=== PATIENT | male | born 1975 | race Caucasian/White ===

== ENCOUNTER 2016-10-23 08:21 | Emergency (ER) | payer SELFPAY ==
[~2016-10-23] VITALS: Ht 182.9 cm; Wt 100.3 kg
[~2016-10-23 08:21] MED LIST: FENT25DI T-DERMAL; LORTA5 PO; OXYC5 PO; PERI8.6T PO; XANA1TAB6 PO
[2016-10-23 08:22] VITALS: BP 128/90; PULSE 70; RESP 15; TEMP 98; O2SAT 99
[2016-10-23] MEDS ORDERED: ENOX100P SQ (08:41)
[2016-10-23] MEDS ORDERED: ONDANSETRON ODT 4 MG TAB PO ONE (08:45)
[2016-10-23] MEDS ORDERED: MORPHINE SULFATE 8 MG/ML INJ IM ONE (08:45)
--- NOTE | 2016-10-23 08:45 | PD ---
HPI Chief Complaint: Injury Time Seen by Provider: 08:33 Travel History International Travel<30 days: No Contact w/Intl Traveler<30days: No Traveled to known affect area: No History of Present Illness HPI 41yo M with PMH of trimalleolar fracture right ankle and s/p multiple surgeries since last year presents to the ED with c/o right ankle pain s/p stepping on a tree root last night. Pt is on chronic pain medication but states he does not have them anymore and use to take dilaudid. Pt has pain management appointment being arranged now. Denies any head trauma, chest pain, sob, vomiting, abdominal pain, focal weakness or numbness. Pt able to ambulate. Orthopedic surgeon was Dr. Echeverria. Pt is on lovenox now because they plan to do another surgery. PFSH Past Medical History Autoimmune Disease: No Anxiety: Yes Depression: No Cancer: No Cardiovascular Problems: No Chemotherapy: No Diabetes: No Diminished Hearing: No Endocrine: No Genitourinary: No Immune Disorder: No Kidney Stones: Yes Musculoskeletal: No Neurologic: No Psychiatric: Yes (anxiety/states PTSD) Reproductive: No Respiratory: No Immunizations Current: Yes Radiation Therapy: No Sickle Cell Disease: No Thyroid Disease: No ?: Not Past Surgical History Abdominal Surgery: No AICD: No Arteriovenous Shunt: No Cardiac Surgery: No Ear Surgery: No Endocrine Surgery: No Eye Surgery: No Genitourinary Surgery: No Gynecologic Surgery: No Insulin Pump: No Joint Replacement: No Oral Surgery: No Pacemaker: No Thoracic Surgery: No Tonsillectomy: Yes Other Surgery: Yes Social History Alcohol Use: No Tobacco Use: Yes (1/2 -1 PPD) Substance Use: No Allergies-Medications (Allergen,Severity, Reaction): Coded Allergies: No Known Allergies (Unverified , 10/23/16) Reported Meds & Prescriptions Reported Meds & Active Scripts Active Reported Lovenox Inj (Enoxaparin Sodium) 100 Mg/Ml Syr 100 Mg SQ DAILY Review of Systems Except as stated in HPI: all other systems reviewed are Neg Physical Exam Narrative GENERAL: 41yo M in mild distress. SKIN: Focused skin assessment warm/dry. HEAD: Atraumatic. Normocephalic. CARDIOVASCULAR: Regular rate and rhythm. No murmur appreciated. RESPIRATORY: No accessory muscle use. Clear to auscultation. Breath sounds equal bilaterally. GASTROINTESTINAL: Abdomen soft, non-tender, nondistended. MUSCULOSKELETAL: RLE: DP 2+. +Edema that has been chronic. +TTP medial and lateral malleous. Muscle strength and sensation intact. NEUROLOGICAL: Awake and alert. No obvious cranial nerve deficits. Motor grossly within normal limits. Normal speech. PSYCHIATRIC: Appropriate mood and affect; insight and judgment normal. Data Data Last Documented VS Vital Signs Date Time Temp Pulse Resp B/P Pulse Ox O2 Delivery O2 Flow Rate FiO2 10/23/16 08:22 98.0 70 15 128/90 99 Orders Ankle, Limited (Ap&Lat) (10/23/16 ) Tibia/Fibula (Ap/Lat) (10/23/16 ) Morphine Inj (Morphine Inj) (10/23/16 08:45) Ondansetron Odt (Zofran Odt) (10/23/16 08:45) MDM Medical Decision Making Medical Screen Exam Complete: Yes Emergency Medical Condition: Yes Differential Diagnosis Sprain vs. fracture vs. contusion Narrative Course 41yo M with right ankle pain. Xray right ankle showed no acute right ankle abnormality. Postsurgical changes. Xray of tib/fib showed no acute osseous abnormality. Hardware demonstrates no acute finding. Pt given morphine 6mg IM. I looked him up on [facility] and saw that he has been getting hydrocondone- acetaminophen 10-[address] Lambert in pain management as well as alprazolam. Pt has been given #90 on 10/11/16 and another #90 on 09/12/16. Return precautions given. Diagnosis Primary Impression: Right ankle pain Qualified Code: M25.571 - Chronic pain of right ankle Patient Instructions: General Instructions Departure Forms: Tests/Procedures Additional Instructions: Please follow up with your pain management physician as needed. Return to the ED if symptoms worsen. Med/Other Pt SpecificInfo: No Change to Meds Disposition: 01 DISCHARGE HOME Condition: Stable Hillary Walker DO October 23, 2016 08:45
--- NOTE | 2016-10-23 09:30 | RADHPO ---
EXAM DATE/TIME: 10/23/2016 08:44 [facility] COMPARISON: ANKLE RIGHT COMPLETE ([id number]), February 15, 2016, 7:13. ANKLE RIGHT LIMITED (AP&LAT), November 11 6, 21:02. INDICATIONS : Ankle pain. MEDICAL HISTORY : None. SURGICAL HISTORY : Right ankle surgery last year. ENCOUNTER: [facility] ACUITY: 1 year PAIN SCORE: 9/10 LOCATION: Right Ankle/tibia FINDINGS: AP and lateral views of the right ankle demonstrate no acute fracture or dislocation. There is a medi al distal tibial side plate with multiple interlocking screws and 2 lag screws. There is a single milvia g cortical screw traversing the distal fibula in a retrograde fashion. There are no findings to indic ate hardware failure or loosening. Lucency is present within the posterior calcaneus secondary to bebeto or hardware. There are osteophytes at the tibiotalar joint. Subcutaneous edema is present. CONCLUSION: 1. No acute right ankle abnormality is identified. 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 2. Postsurgical changes, as above. Hardware demonstrates no acute finding. Flaco Soto MD on October 23, 2016 at 9:26 Board Certified Radiologist. This report was verified electronically.
--- NOTE | 2016-10-23 09:31 | RADHPO ---
EXAM DATE/TIME: 10/23/2016 09:01 [facility] COMPARISON: No previous studies available for comparison. INDICATIONS : Right ankle/leg pain. MEDICAL HISTORY : None. SURGICAL HISTORY : Right ankle surgery last year. ENCOUNTER: [facility] ACUITY: 1 year PAIN SCORE: 9/10 LOCATION: Right ankle/tibia FINDINGS: 4 views of the right leg demonstrate no fracture or dislocation. There is distal tibia and fibular cespedes rdware related to prior ORIF. Hardware demonstrates no finding to indicate failure or loosening. Ther e is subcutaneous edema in the distal aspect the leg. Lucencies in the mid tibia and posterior calcan eus are likely related to prior hardware that has been removed. CONCLUSION: 1. No acute osseous abnormality is visualized. There is subcutaneous edema in the distal leg. 2. Prior distal tibia and fibula ORIF. Hardware demonstrates no acute finding. Flcao Soto MD on October 23, 2016 at 9:28 Board Certified Radiologist. This report was verified electronically.
== END 2016-10-23 10:28 | disposition home or self-care (01) ==
LOC: PHED 08:21
DX: M25.571 Pain in right ankle and joints of right foot (principal); G89.29 Other chronic pain; F41.9 Anxiety disorder, unspecified; F43.10 Post-traumatic stress disorder, unspecified; F17.200 Nicotine dependence, unspecified, uncomplicated
CPT/HCPCS: 73590; 73600; 96372; 99284; J2270

== ENCOUNTER 2016-11-16 14:37 | Emergency (ER) | payer SELFPAY ==
[~2016-11-16] VITALS: Ht 182.9 cm; Wt 95.0 kg
[~2016-11-16 14:37] MED LIST changes: +ENOX100P SQ; -FENT25DI T-DERMAL; -LORTA5 PO; -OXYC5 PO; -PERI8.6T PO; -XANA1TAB6 PO
[2016-11-16 14:41] VITALS: BP 139/88; PULSE 94; RESP 14; TEMP 98.5; O2SAT 97
[2016-11-16 15:58] VITALS: BP 117/56; PULSE 76; RESP 19; O2SAT 96
[2016-11-16] MEDS ORDERED: ALPR1TAB3 PO (15:58)
[2016-11-16] MEDS ORDERED: LEXA20TA PO (15:58)
[2016-11-16] MEDS ORDERED: GABA600T PO (15:58)
[2016-11-16] MEDS ORDERED: DILA8TAB4 PO (15:58)
[2016-11-16] MEDS ORDERED: HYDR-3583 PO (15:58)
--- NOTE | 2016-11-16 16:05 | PD ---
HPI Chief Complaint: Respiratory Symptoms Time Seen by Provider: 16:03 Travel History International Travel<30 days: No Contact w/Intl Traveler<30days: No Traveled to known affect area: No History of Present Illness HPI 41-year-old male presents to the emergency department for evaluation of upper respiratory symptoms that have been ongoing for 1 week. Patient reports productive cough, congestion. He states he has chest wall pain with coughing and movement only. Patient denies any shortness breath. No abdominal pain. No nausea, vomiting, diarrhea. Patient is concerned he either has bronchitis or pneumonia. He denies any recent surgery or travel within the past month. No hemoptysis. No leg edema. No history DVT or PE. Patient states he was a previous tobacco user, but is not currently using tobacco. He does report a history of pneumonia. Patient has chronic pain to the right ankle. He denies any other complaints at this time. PFSH Past Medical History Autoimmune Disease: No Anxiety: Yes Depression: No Cancer: No Cardiovascular Problems: No Chemotherapy: No Diabetes: No Diminished Hearing: No Endocrine: No Gastrointestinal Disorders: No Genitourinary: No Heparin Induced Thrombocytopen: No Hypertension: No Immune Disorder: No Implanted Vascular Access Dvce: No Kidney Stones: Yes Musculoskeletal: No Neurologic: No Psychiatric: Yes (anxiety/states PTSD) Reproductive: No Respiratory: No Immunizations Current: Yes Radiation Therapy: No Sickle Cell Disease: No Thyroid Disease: No Past Surgical History Abdominal Surgery: No AICD: No Arteriovenous Shunt: No Cardiac Surgery: No Ear Surgery: No Endocrine Surgery: No Eye Surgery: No Genitourinary Surgery: No Gynecologic Surgery: No Insulin Pump: No Joint Replacement: No Oral Surgery: No Pacemaker: No Thoracic Surgery: No Tonsillectomy: Yes Other Surgery: Yes Social History Alcohol Use: No Tobacco Use: Yes (12 -1 PPD) Substance Use: No Allergies-Medications (Allergen,Severity, Reaction): Coded Allergies: No Known Allergies (Unverified , 11/16/16) Reported Meds & Prescriptions Reported Meds & Active Scripts Active Reported Gabapentin 600 Mg Tab 600 Mg PO TID Dilaudid (Hydromorphone HCl) 8 Mg Tab 8 Mg PO Q6H PRN Hydrocodone-Acetaminophen 10-325 mg Tab 1 Tab PO Q6H PRN Lexapro (Escitalopram Oxalate) 20 Mg Tab 20 Mg PO DAILY Alprazolam 1 Mg Tab 1 Mg PO TID Review of Systems Except as stated in HPI: all other systems reviewed are Neg Physical Exam Narrative GENERAL: Well-nourished, well-developed male patient, ambulatory. Afebrile. SKIN: Focused skin assessment warm/dry. HEAD: Normocephalic. Atraumatic. EYES: No scleral icterus. No injection or drainage. NECK: Supple, trachea midline. No JVD or lymphadenopathy. CARDIOVASCULAR: Regular rate and rhythm without murmurs, gallops, or rubs. RESPIRATORY: Breath sounds equal bilaterally. No accessory muscle use. Lungs sounds are clear to auscultation. GASTROINTESTINAL: Abdomen soft, non-tender, nondistended. MUSCULOSKELETAL: No cyanosis, or edema. Chest wall pain is easily reproducible with palpation. BACK: Nontender without obvious deformity. No CVA tenderness. Data Data Last Documented VS Vital Signs Date Time Temp Pulse Resp B/P Pulse Ox O2 Delivery O2 Flow Rate FiO2 11/16/16 16:02 74 20 98 Room Air 11/16/16 15:58 117/56 11/16/16 14:41 98.5 Orders Chest, Single Ap (11/16/16 ) [facility] Medical Decision Making Medical Screen Exam Complete: Yes Emergency Medical Condition: Yes Medical Record Reviewed: Yes Interpretation(s) Last Impressions Chest X-Ray 11/16/16 0000 Signed Impressions: Service Date/Time: October 16:08 - CONCLUSION: No acute cardiopulmonary abnormality is identified. Flaco Soto MD Differential Diagnosis URI versus bronchitis versus pneumonia Narrative Course 41-year-old male presents to the emergency department for evaluation of cold symptoms for one week. Patient does appear well on exam. Chest wall pain is easily reproducible with palpation is relieved as long as he is not moving or coughing. Patient is PERC negative. Lungs sounds are clear to auscultation. Chest x-ray is ordered and pending. Chest x-ray shows no acute abnormality. Patient is stable for discharge. He is to follow-up with his primary care physician. He'll be discharged with a prescription for benzonatate capsules for cough. Diagnosis Primary Impression: Viral upper respiratory infection Referrals: Primary Care Physician call for appointment Patient Instructions: General Instructions, Upper Respiratory Infection (ED) Additional Instructions: Take benzonatate capsules as directed as needed for cough. Follow-up with your primary care physician. Return to the emergency department for any acute worsening of symptoms. Med/Other Pt SpecificInfo: Prescription(s) given Scripts Benzonatate 200 Mg [id number] Mg PO TID PRN (COUGH) #21 CAP Ref 0 Prov:Mayra Wong 11/16/16 Disposition: 01 DISCHARGE HOME Condition: Stable Mayra Wong Nov 16, 2016 16:05
--- NOTE | 2016-11-16 16:20 | RADRPT ---
EXAM DATE/TIME: 11/16/2016 16:08 [facility] COMPARISON: CHEST SINGLE AP, November 12, 2015, 23:23. INDICATIONS : Cough and respiratory complaints. MEDICAL HISTORY : None. SURGICAL HISTORY : None. ENCOUNTER: Initial ACUITY: 1 week PAIN SCORE: 0/10 LOCATION: Bilateral chest FINDINGS: Portable AP view of the chest demonstrates a normal-sized cardiac silhouette. No effusion, consolidat ion, or pneumothorax is visualized. The bones and soft tissues demonstrate no acute abnormality. CONCLUSION: No acute cardiopulmonary abnormality is identified. Flaco Soto MD on November 16, 2016 at 16:17 Board Certified Radiologist. This report was verified electronically.
[2016-11-16] MEDS ORDERED: BENZ1CAP34 PO (16:46)
== END 2016-11-16 16:58 | disposition home or self-care (01) ==
LOC: NEPD 14:37
DX: J06.9 Acute upper respiratory infection, unspecified (principal); F17.210 Nicotine dependence, cigarettes, uncomplicated
CPT/HCPCS: 71010; 99283